=== PATIENT | female | born 1965 | race Caucasian/White ===

== ENCOUNTER → 2016-11-27 | Outpatient (CLI) | payer BC ==
[~2016-11-27] MED LIST: ACET-1311 PO; BIOT1CAP3 PO; IBUP-103 PO; MULT-506 PO; TAMO20TA9 PO; TRAZ-119 PO; [UNRECOGNIZED DRUG - OTHER]
== END | disposition home or self-care (01) ==
LOC: C.LABPVFM 07:46
PROVIDERS: ATTEND Family Medicine
DX: J02.9 Acute pharyngitis, unspecified (principal)

== ENCOUNTER → 2017-04-27 | Outpatient (CLI) | payer BC ==
--- NOTE | 2017-04-27 09:18 | DIAGNOSTIC IMAGING REPORT ---
RIBS UNILATERAL WITH PA CHEST CLINICAL HISTORY: BREAST CANCER abnormal bone scan. COMPARISON STUDY: Rib series dated 10/26/2015, bone scan dated 04/18/2016 FINDINGS: The erect chest reveals no pneumothorax. There are surgical clips in the right and left axillary regions. No rib fractures are visualized. There is an area of sclerosis involving the right sixth rib, consistent with a an old/healing fracture. IMPRESSION: Right sixth rib deformity and sclerosis, consistent with an old fracture. Electronically signed by: Alok Stallings M.D. 04/27/2017 9:16 AM Dictated Date/Time: 04/27/2017 9:13 AM
[2017-04-27 10:02] LABS: BLOOD UREA NITROGEN 14 mg/dl (7-18); BUN/CREATININE RATIO 20.5 (10-20); CALCIUM 9.1 mg/dl (8.5-10.1); CARBON DIOXIDE 27 mmol/L (21-32); CHLORIDE 107 mmol/L (98-107); CHOLESTEROL 159 mg/dl (0-200); CREATININE 0.69 mg/dl (0.60-1.20); GLUCOSE 94 mg/dl (70-99); POTASSIUM 4.4 mmol/L (3.5-5.1); SODIUM 140 mmol/L (136-145)
[2017-04-27 10:04] LABS: CHOLESTEROL/HDL RATIO 2.1; HDL CHOLESTEROL 74 mg/dl; LDL CHOLESTEROL CALCULATED 49 mg/dl; TRIGLYCERIDES 181 mg/dl (0-150); VERY LOW DENSITY LIPOPROT CALC 36 mg/dl
== END | disposition home or self-care (01) ==
LOC: C.LAB 08:30
PROVIDERS: ATTEND Internal Medicine Hematology & Oncology
DX: C50.411 Malignant neoplasm of upper-outer quadrant of right female breast (principal); Z13.1 Encounter for screening for diabetes mellitus; Z13.220 Encounter for screening for lipoid disorders

== ENCOUNTER → 2017-05-08 | Outpatient (CLI) | payer BC | END | disposition home or self-care (01) | LOC: C.PAPS 10:15 | PROVIDERS: ATTEND Physician Assistant | DX: Z01.419 Encounter for gynecological examination (general) (routine) without abnormal findings (principal) ==

== ENCOUNTER → 2018-02-15 | Outpatient (CLI) | payer OTHER, BC ==
[~2018-02-15] MED LIST changes: -TRAZ-119 PO; +TRAZ1TAB96 PO
[2018-02-15 17:49] LABS: BLOOD UREA NITROGEN 12 mg/dl (7-18); CALCIUM 8.9 mg/dl (8.5-10.1); CARBON DIOXIDE 26 mmol/L (21-32); CREATININE 0.81 mg/dl (0.60-1.20); GLUCOSE 92 mg/dl (70-99); POTASSIUM 3.7 mmol/L (3.5-5.1); SODIUM 140 mmol/L (136-145)
== END | disposition home or self-care (01) ==
LOC: C.LABPVFM 16:23
PROVIDERS: ATTEND Nurse Practitioner
DX: R10.812 Left upper quadrant abdominal tenderness (principal)

== ENCOUNTER → 2018-02-16 | Outpatient (CLI) | payer OTHER, BC ==
[2018-02-16 17:52] LABS: LIPASE 98 U/L (73-393)
== END | disposition home or self-care (01) ==
LOC: C.LABPVFM 13:36
PROVIDERS: ATTEND Nurse Practitioner
DX: R10.812 Left upper quadrant abdominal tenderness (principal)

== ENCOUNTER → 2018-02-17 | Outpatient (CLI) | payer OTHER, BC ==
--- NOTE | 2018-02-17 08:07 | DIAGNOSTIC IMAGING REPORT ---
LEFT UPPER QUADRANT ABDOMINAL ULTRASOUND HISTORY: Left upper quadrant tenderness. COMPARISON: [facility] November 17, 2011. TECHNIQUE: Sonography of the left upper quadrant was performed. FINDINGS: Size of the spleen is normal, measuring 9.4 cm in maximal dimension. There is no perisplenic fluid. There is no left hydronephrosis. Left kidney is within normal limits by sonography. IMPRESSION: Normal sonographic appearance of the left kidney and spleen. Electronically signed by: Brett Platt M.D. 02/17/2018 8:06 AM Dictated Date/Time: 02/17/2018 7:56 AM
== END | disposition home or self-care (01) ==
LOC: C.ULTR 07:27
PROVIDERS: ATTEND Nurse Practitioner
DX: R10.812 Left upper quadrant abdominal tenderness (principal)